=== PATIENT | female | born 1940 | race Caucasian/White ===

== ENCOUNTER 2021-06-23 13:40 | Outpatient (RCR) | payer MEDICARE, SELFPAY ==
--- NOTE | 2021-06-23 15:14 | PTOPEVAL ---
PHYSICAL THERAPY EVALUATION AND PLAN OF CARE 06-23-21 Thank you for referring Susan Crabtree to [facility].? The plan for treatment is ?0-2 x/week for 4 weeks. She is to call if she has any further questions, or if additional treatment is needed, Please review, sign, date and return this plan of care HEMAL. I agree with and certify that the following plan of care is medically necessary. Referring Physician Date Attending Provider: Gallito Frazier MD Past Medical History Source of Past Medical History Patient Neurological History Hx Other Neurological Disorders Yes: have headaches daily, lasting most all day Cardiovascular History Hx Hypercholesterolemia Yes: meds Hx Hypertension Yes: meds Respiratory History Hx Respiratory Disorders No Significant History Gastrointestinal History Hx Gastrointestinal Disorders No Significant History Genitourinary History Hx Genitourinary Disorders No Significant History Musculoskeletal History Hx Other Musculoskeletal Disorders Yes: legs weak sometimes Endocrine History Hx Endocrine Disorders No Significant History HEENT History Hx Cataracts Yes: B cataract surgery, use reading glasses Hx Other HEENT Disorders Yes: minimal hearing loss L ear, ringing L ear; B ears hearing loss Evaluation Information Problem Diagnosis dizziness, BPPV Onset May 2021 Prior Level of Function Activity Level (Last 3 Months) Occupation retired Activity of Daily Living Ability Independent Indoor/Home Mobility Independent Community Mobility Independent Stairs Ability Independent Functional Cognition (Planning, Shopping Independent , Taking Medications) Cooking Yes Cleaning Yes Laundry Yes Shopping Yes Driving Yes Home Setting Mobility Assistive Devices (Used Last 3 None Months) Comments Additional Prior Level of Function does all home and self care Comments tasks, increased problems with leaning over to sweep and use of dust pain Pain Assessment Timing of Pain Assessment Timing of Pain Assessment Assessment Pain Scale Pain Scale Used Numeric (1 - 10) Self Report Pain Assessment Bilateral Head Reported Pain Level 4 Pain Description Tightness Pain Frequency Chronic,Continuous Other Pain Description tightness in neck, headaches all day long- in forehead and L eye Lowest Pain Intensity 0
--- NOTE | 2021-08-02 15:48 | PCPTNOTE ---
PHYSICAL THERAPY DISCHARGE 08-02-21 Attending Provider: Gallito Frazier MD Patient:Susan Crabtree Date of :1940 Mrs. Crabtree has not returned for any further treatments since the initial evaluation on 06/23/2021, for the diagnosis of dizziness, BPPV. Therefore she will be discharged at this time. The goals were not assessed. Thank you for referring Susan to [facility]. Please review, sign, date and return this discharge summary HEMAL. I have been updated about the patient's current status and I agree with discharge from the above service at this time. Referring Physician Date
== END 2021-08-03 07:22 | disposition home or self-care (01) ==
LOC: ANHPT 13:40
PROVIDERS: PCP Physician Assistant; Visit Provider Otolaryngology
DX: R42 Dizziness and giddiness (principal)
CPT/HCPCS: 97162

== ENCOUNTER 2023-10-30 10:33 | Outpatient (CLI) | payer MEDICARE, SELFPAY ==
[2023-10-30 10:55] LABS: Hemoglobin 15.9 g/dL (12.0-15.0); Mean Corpuscular HGB Conc 33.1 g/dl (32-36); Mean Corpuscular Hemoglobin 30.5 pg (26-34); Mean Corpuscular Volume 92.1 fl (80-100); Mean Platelet Volume 8.7 fl (7.4-10.4); Platelet Count Result 279 k/mm3 (150-375); Red Blood Count 5.21 M/mm3 (4.2-5.4); White Blood Count 11.4 K/mm3 (4.5-10.0)
[2023-10-30 11:11] LABS: Alanine Aminotransferase 19 U/L (6-35); Alkaline Phosphatase 90 U/L (38-126); Anion Gap 10 mmol/L (4-12); Aspartate Amino Transferase 27 U/L (14-36); Bilirubin,Total 0.8 mg/dL (0.2-1.3); Blood Urea Nitrogen 19 mg/dL (7-17); Calcium 9.9 mg/dL (8.4-10.2); Carbon Dioxide 29 mmol/L (22-30); Chloride 102 mmol/L (98-107); Cholesterol 171 mg/dL (0-200); Estimated Glomerular Filt Rate 39; Glucose 159 mg/dL (65-110); HDL Direct 57 mg/dL; Potassium 4.2 mmol/L (3.4-5.0); Sodium 141 mmol/L (137-145); Triglycerides 209 mg/dL (<150)
[2023-10-30 11:14] LABS: Hemoglobin A1C 5.4 % (<5.7)
[2023-10-30 11:22] LABS: LDL Cholesterol Direct 88 mg/dL
[2023-10-30 11:34] LABS: Vitamin D 25 Hydroxy 66.8 ng/mL
== END 2023-10-30 10:34 | disposition home or self-care (01) ==
LOC: ANHLAB 10:36
PROVIDERS: PCP Nurse Practitioner; Visit Provider Nurse Practitioner
DX: E78.5 Hyperlipidemia, unspecified (principal); E11.9 Type 2 diabetes mellitus without complications; E55.9 Vitamin D deficiency, unspecified; Z79.899 Other long term (current) drug therapy
CPT/HCPCS: 36415; 80053; 80061; 82306; 83036; 84443; 85027

== ENCOUNTER 2023-11-14 10:13 | Outpatient (CLI) | payer MEDICARE, SELFPAY ==
[2023-11-14 11:43] LABS: Hematocrit 46.9 % (37.0-47.0); Hemoglobin 15.1 g/dL (12.0-15.0); Mean Corpuscular HGB Conc 32.2 g/dl (32-36); Mean Corpuscular Volume 93.1 fl (80-100); Mean Platelet Volume 8.9 fl (7.4-10.4); Platelet Count Result 352 k/mm3 (150-375); Red Blood Count 5.04 M/mm3 (4.2-5.4); Red Cell Distribution Width 12.9 % (11.5-14.5); White Blood Count 8.1 K/mm3 (4.5-10.0)
== END 2023-11-14 10:14 | disposition home or self-care (01) ==
PROVIDERS: PCP Nurse Practitioner; Visit Provider Nurse Practitioner
DX: D72.829 Elevated white blood cell count, unspecified (principal)
CPT/HCPCS: 36415; 85027

== ENCOUNTER 2023-12-04 19:12 | Emergency (ER) | payer MEDICARE, SELFPAY ==
--- NOTE | ~2023-12-04 | XR_ITS ---
EXAMINATION: XR chest 1V portable DATE: 12/04/2023 19:57 INDICATION: Chest pain radiating to the left shoulder TECHNIQUE: frontal view of the chest was obtained. COMPARISON: None FINDINGS: The lungs are clear with no focal airspace opacities, pulmonary edema, pleural effusion or pneumothor ax. The cardiomediastinal silhouette is normal. Visualized bones and soft tissues are unremarkable. IMPRESSION: 1. No acute cardiopulmonary disease. Reviewed, dictated and finalized at location A.
--- NOTE | 2023-12-04 19:14 | ECG_ITS ---
Test Date: 2023-12-04 19:30:06 Measurements Intervals [place] Rate: 68 P: 71 RI: 215 QRS: 14 QRSD: 99 T: 48 QT: 406 QTc: 433 Interpretive Statements SINUS RHYTHM WITH FIRST DEGREE AV BLOCK HIGH LATERAL INFARCT, AGE INDETERMINATE BASELINE ARTIFACT- I, II, III, AVR, AVL, AVF, V1, V3-V6 ABNORMAL ECG No previous ECG available for comparison Electronically Signed On 12-04-2023 20:32:35 CDT by Catarino Houston D.O.
[2023-12-04 19:31] VITALS: BP 159/80; PULSE 75; RESP 22; TEMP 36.6; O2SAT 96
[2023-12-04 19:36] VITALS: PULSE 74; O2SAT 95
[2023-12-04 19:37] VITALS: O2SAT 95
[2023-12-04] MEDS: ASPIRIN 81 MG CHEWABLE TABLET 324 MG PO (19:45)
--- NOTE | 2023-12-04 19:47 | ED.CHESTPAIN ---
HPI - Chest Pain General Chief Complaint: Chest Pain Stated Complaint: chest pain Time Seen by Provider: 12/04/23 19:34 Source: patient and family Limitations: no limitations History of Present Illness HPI narrative: Patient is an 82-year-old female presents to the emergency department complaining of chest pain. Patient states around 2:00 p.m. she started to notice some twinges in her left chest, that would come for a few seconds and then go away and come back for a few seconds, at the same time she also noticed that it seemed like there was some radiation component to her left arm of pain. Patient denies any recent injuries, recent illness, history of blood clots, cough, fever, bloody bowel movements, urinary discomfort, abdominal pain, nausea, vomiting, sore throat, nasal congestion, numbness, weakness. Patient denies history of heart disease or seeing a digital x ray service engineer. Patient admits to history of high blood pressure in addition to high cholesterol. Patient admits to taking a baby aspirin daily. Patient has not noticed anything that makes her pain better or worse, admits to history of this pain in the past but does not know a cause that, notes that when it started she was is doing some chores around the house without any significant exertional activity. Patient admits to some slight associated shortness of breath has been going on for a while but seems to be slightly worse with the chest discomfort. Denies exertional or pleuritic component to the pain. Patient denies any pain at this time. Related Data Home Medications Medication Instructions Recorded Confirmed cholecalciferol (vitamin D3) 10 400 unit PO DAILY 03/09/19 10/30/23 mcg (400 unit) tablet multivitamin (Daily Multi-Vitamin 1 tablet PO DAILY 02/23/22 10/30/23 tablet) Allergies Allergy/AdvReac Type Severity Reaction Status Date / Time Penicillins Allergy Mild Unknown Verified 10/30/23 07:26 Review of Systems Review of Systems: A 10 system review of systems was completed on the patient and is negative except for what is stated in the HPI. Nursing and ancillary documentation was reviewed. [facility] Surgical History Surgical History History of vaginal hysterectomy 1975 Hx of appendectomy Open in 1975 Hx of cholecystectomy Open cholecystectomy 1974 Family History Family History Mother Family history of Alzheimer's disease Father No family history of cardiovascular disease Other Cancer Heart disease Social History Social History Smoking status: Never smoker Second hand tobacco smoke exposure: No Alcohol intake: never Lack of Transportation: No Lack of Food: Sometimes True Current Housing: I Have Housing Concerned About Future Housing: No Difficulty Paying Gas/Electric Bills: No Difficulty Paying for Meds: No Currently Unemployed: No Education: Associate Degree Difficulty w/ Childcare or Family Care: No Comments At time of signature, I have reviewed and agree with nursing past medical, surgical, social and family history unless otherwise noted. Please see the nursing chart for further information. There is no relevant family history pertinent to the presenting complaint. Exam Narrative: CONST: No acute distress. Well nourished. HENMT: Head is normocephalic and atraumatic. Moist mucous membranes. No posterior oropharynx erythema. EYES: No scleral icterus. No conjunctival injection or pallor. PERRL. NECK: No meningeal signs. RESP: Able to speak in full sentences. Normal respiratory effort. CTAB. CARDIO: Regular rate. Regular rhythm. 2+ DP and radial pulses bilaterally. GI: Nondistended. No tenderness to palpation. Soft. : No CVA tenderness to palpation. SKIN: No rashes or lesions noted on exposed skin. NEURO: Oriented x3. Moves all extremit
[2023-12-04 19:48] VITALS: BP 151/66; PULSE 67; RESP 16; O2SAT 95
[2023-12-04 19:55] LABS: Basophils Percent Auto 0.3 % (0.2-1.2); Eosinophils Absolute Auto 0.1 K/mm3 (0-0.3); Eosinophils Percent Auto 1.6 % (0-4.4); Hematocrit 44.5 % (37.0-47.0); Hemoglobin 14.7 g/dL (12.0-15.0); Immature Granulocyte Absolute 0.02 K/mm3 (0.00-0.031); Immature Granulocyte Percent A 0.2 % (0-0.5); Lymphocytes Percent Auto 42.6 % (18.3-44.2); Mean Corpuscular Hemoglobin 30.1 pg (26-34); Mean Corpuscular Volume 91.2 fl (80-100); Monocytes Absolute Auto 0.5 K/mm3 (0.1-0.6); Monocytes Percent Auto 6.2 % (2.6-8.5); Neutrophils Absolute Auto 4.3 K/mm3 (1.3-6.7); Neutrophils Percent Auto 49.1 % (45.5-73.1); Platelet Count Result 241 k/mm3 (150-375); Red Blood Count 4.88 M/mm3 (4.2-5.4); Red Cell Distribution Width 13.2 % (11.5-14.5); White Blood Count 8.7 K/mm3 (4.5-10.0)
[2023-12-04 20:10] LABS: Alanine Aminotransferase 17 U/L (6-35); Albumin Level 4.6 g/dL (3.5-5.1); Alkaline Phosphatase 76 U/L (38-126); Anion Gap 11 mmol/L (4-12); Aspartate Amino Transferase 23 U/L (14-36); Bilirubin,Total 0.8 mg/dL (0.2-1.3); Blood Urea Nitrogen 19 mg/dL (7-17); Calcium 9.5 mg/dL (8.4-10.2); Carbon Dioxide 29 mmol/L (22-30); Chloride 97 mmol/L (98-107); Estimated CRCL calculation 30 ml/min; Estimated Glomerular Filt Rate 39; Glucose 138 mg/dL (65-110); INR 0.9; Lipase 94 U/L (23-300); Potassium 4.1 mmol/L (3.4-5.0); Prothrombin Time 13.1 Seconds (11.1-14.7); Sodium 137 mmol/L (137-145)
[2023-12-04 20:11] LABS: Partial Thromboplastin Time 25.1 Seconds (22.3-36.8)
[2023-12-04] MEDS: SODIUM CHLORIDE 0.9% IV 500 ML 999 ML IV CONT (20:13)
[2023-12-04] MEDS: FAMOTIDINE 20 MG/2 ML VIAL IV PUSH (20:14)
[2023-12-04] MEDS: ACETAMINOPHEN 500 MG TABLET 1000 MG PO (20:14)
[2023-12-04 20:22] LABS: Troponin I < 0.012 ng/mL (0.000-0.034)
[2023-12-04 20:23] VITALS: BP 153/73; PULSE 71; RESP 16; O2SAT 98
[2023-12-04 20:52] LABS: D Dimer 0.34 ug/mL (<0.48)
== END 2023-12-04 21:30 | disposition home or self-care (01) ==
PROVIDERS: Emergency Provider Student in an Organized Health Care Education/Training Program; PCP Nurse Practitioner
DX: R07.9 Chest pain, unspecified (principal); I10 Essential (primary) hypertension; E78.00 Pure hypercholesterolemia, unspecified; Z90.710 Acquired absence of both cervix and uterus; Z90.49 Acquired absence of other specified parts of digestive tract; Z79.82 Long term (current) use of aspirin; I44.0 Atrioventricular block, first degree
CPT/HCPCS: 36415; 71045; 80053; 83690; 83735; 84484; 85025; 85380; 85610; 85730; 93005; 96361; 96374; 99284; A9270; J7040

== ENCOUNTER 2024-11-23 11:00 | Outpatient (CLI) | payer MEDICARE, SELFPAY ==
--- OUTSIDE RECORDS SUMMARY | 2024-11-23 11:06 | XMS_ITS | Referral Summary ---
Author Organization [facility] [address] [facility] [place] [address] Care Team Providers Care Ticket Collector Name Role Phone Unknown, Notinfile Primary Care Provider Unavail able Allergies Active Allergy Reactions Criticality Noted Date Comments Penicillins Rash Medium 03/17/2023 Medications lisinopriL (PRINIVIL,ZESTR IL) 20 mg tablet 3 Active furosemide (LASIX) 40 mg tablet Take 1 tablet (40 mg total) by mouth daily 3 Active metoprolol tartrate (LOPRESSOR) 50 mg immediate release tablet 3 Active simvastatin (ZOCOR) 10 mg tablet 3 Active ALPRAZolam (XANAX) 0.25 mg tablet Take 1 tablet (0.25 mg total) by mouth nightly as needed for anxiety Active cephalexin (KEFLEX) 500 mg capsuleIndicati ons:Left foot infection Take 1 capsule (500 mg total) by mouth 4 (four) times a day 28 capsule 3 Active meclizine (ANTIVERT) 25 mg tablet TAKE 1 TABLET BY MOUTH THREE TIMES A DAY NEEDED FOR DIZZINESS 4 Active Active Problems No known active problems Social History Tobacco Use Types Packs/Day Years Used Date Smoking Tobacco: Never Assessed Personal Safety Answer Date Recorded Getting School Help Needed Not on file 07/20 Comments Unknown Sex and Gender Information Value Date Recorded Sex Assigned at Not on file 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 Gender Identity Not on file Sexual Orientation Not on file Last Filed Vital Signs Vital Sign Reading Time Taken Comments Blood Pressure 154/86 12/04/2023 6:47 PM CDT Pulse 66 12/04/2023 6:47 PM CDT Temperature 36.1 C (97 F) 12/04/2023 6:47 PM CDT Respiratory Rate 16 12/04/2023 6:47 PM CDT Oxygen Saturation 97% 12/04/2023 6:47 PM CDT Inhaled Oxygen Concentration - - Weight 81.6 kg (180 lb) 12/04/2023 6:47 PM CDT Height 167.6 cm (5' 6) 12/04/2023 6:47 PM CDT Body Mass Index 29.05 12/04/2023 6:47 PM CDT Plan of Treatment Not on file Insurance [facility] MEDICARE ADVANTAGE [facility] MEDICARE Address: [facility] [address] [place] [address] Care Teams Ticket Collector Relationship Specialty Start Date End Date Unknown, Notinfile PCP - General 03/17/23
--- OUTSIDE RECORDS SUMMARY | 2024-11-23 11:06 | XMS_ITS | Clinical Summary ---
Author Organization [facility] [address] 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 Gender Identity Not on file Sexual Orientation [...] 12/04/2023 6:47 PM CDT Plan of Treatment Health Maintenance Due Date Last Done Comments Depression Screening 1940 Fall Risk Assessment 1940 Osteoporosis Screening-Bone Density Scan 1940 Hepatitis B Screening 12/06/1958 Well Visit 65+ 2006 Covid-19 Vaccine (2023-2 5 season) 2024 01/26/2023, 02/24/2022, 10/01/2021, Additional history exists Influenza Vaccine (Season Ended) 2025 01/26/2023, 02/12/2022, 02/08/2021, Additional history exists DTaP/Tdap/Td Vaccine (2 - Td or Tdap) 06/25/2030 06/25/2020 Zoster Vaccine Completed 05/09/2020, 03/07/2020 Pneumococcal vaccine 65+ Completed 12/03/2021, 04/06 Insurance Care Teams Telephone Exchange Operator Relationship Specialty Start Date End Date Unknown, Notinfile PCP - General 03/17/23
[2024-11-23 11:58] LABS: Hemoglobin A1C 5.5 % (<5.7)
[2024-11-23 12:13] LABS: Alanine Aminotransferase 19 U/L (6-35); Albumin Level 4.5 g/dL (3.5-5.1); Alkaline Phosphatase 77 U/L (38-126); Anion Gap 10 mmol/L (4-12); Aspartate Amino Transferase 33 U/L (14-36); Bilirubin,Total 0.8 mg/dL (0.2-1.3); Blood Urea Nitrogen 17 mg/dL (7-17); Calcium 9.9 mg/dL (8.4-10.2); Carbon Dioxide 29 mmol/L (22-30); Chloride 101 mmol/L (98-107); Cholesterol 190 mg/dL (0-200); Estimated Glomerular Filt Rate 42; Glucose 146 mg/dL (65-110); HDL Direct 53 mg/dL; Potassium 3.9 mmol/L (3.4-5.0); Sodium 140 mmol/L (137-145); Total Protein 7.8 g/dL (6.3-8.2); Triglycerides 196 mg/dL (<150)
== END 2024-11-23 11:01 | disposition home or self-care (01) ==
PROVIDERS: PCP Internal Medicine; Visit Provider Internal Medicine
DX: E78.5 Hyperlipidemia, unspecified (principal); I10 Essential (primary) hypertension; R73.9 Hyperglycemia, unspecified
CPT/HCPCS: 36415; 80053; 80061; 83036